=== PATIENT | male | born 1940 | race Caucasian/White ===

== ENCOUNTER 2017-04-07 09:56 | Day surgery (SDC) | payer MEDICARE, OTHER ==
[~2017-04-07 09:56] MED LIST: MEDS
[2017-04-07 11:17] LABS: BASO % 0.2 % (0-2); EOS % 2.4 % (0-7); EOSINOPHIL ABSOLUTE COUNT 0.1 tho/cmm (0.0-0.7); HCT-HEMATOCRIT 34.9 % (36.0-53.5); HGB-HEMOGLOBIN 11.8 gm/dl (13.5-17.0); IMMATURE GRANULOCYTES ABSOLUTE 0.01 tho/cmm (0-0.03); IMMATURE GRANULOCYTES PERCENT 0.2 % (0-0.3); LYMPH % 8.7 % (20-45); LYMPH ABSOLUTE COUNT 0.4 tho/cmm (0.8-4.5); MCH (MEAN CORPUSCULAR HGB) 31.1 pg (28.0-32.0); MCHC MEAN CORPUSCULAR HGB CONC 33.8 % (32.0-36.0); MCV (MEAN CELL VOLUME) 91.8 fl (82.0-96.0); MEAN PLATELET VOLUME 9.3 cmc (9.4-12.4); MONO % 10.9 % (0-12); MONOCYTE ABSOLUTE COUNT 0.5 tho/cmm (0.0-1.2); NEUTROPHIL ABSOLUTE COUNT 3.9 tho/cmm (1.6-8.0); NEUTROPHIL-AUTOMATED 3.9 tho/cmm (1.6-8.0); NEUTROPHILS % 77.6 % (40-80); PLATELET COUNT 124 tho/cmm (150-450); RED CELL DISTRIBUTION WIDTH 13.1 % (12.4-16.4)
[2017-04-07 11:26] LABS: INR 1.1 INR (0.9-1.1); PROTHROMBIN TIME 12.3 SECONDS (9.0-13.6)
[2017-06-12] MEDS ORDERED: LANTUS100 UNITS/ SC ×2 (13:07→13:42)
[2017-06-12] MEDS ORDERED: CENTRUM SILVER1 EAC3 PO (13:07)
[2017-06-12] MEDS ORDERED: KEPPRA500 M3 PO (13:08)
[2017-06-12] MEDS ORDERED: TOPROL XL25 M1 PO (13:08)
[2017-06-12] MEDS ORDERED: DILANTIN100 M1 PO (13:11)
[2017-06-12] MEDS ORDERED: PRAVASTATIN SOD20 M1 PO (13:12)
[2017-06-12] MEDS ORDERED: ZOFRAN8 M1 PO (13:17)
[2017-06-12] MEDS ORDERED: PROAIR HFA8.5 GM INH (13:17)
[2017-06-12] MEDS ORDERED: NORCO 5-325 TA1 EACH PO (13:18)
[2017-06-12] MEDS ORDERED: PROCHLORPERAZIN10 M1 PO (13:18)
[2017-06-12] MEDS ORDERED: LINZESS290 MC1 PO (13:19)
[2017-06-12] MEDS ORDERED: BREO ELLIPTA 21 EACH INH (13:19)
[2017-06-12] MEDS ORDERED: HYDROCHLOROTHIA25 M1 PO (13:19)
[2017-06-12] MEDS ORDERED: AMITIZA24 MC1 PO (13:19)
[2017-06-12] MEDS ORDERED: LOMOTIL 2.5-0.1 EACH PO (13:20)
[2017-06-12] MEDS ORDERED: COZAAR50 M1 PO (13:20)
[2017-06-12] MEDS ORDERED: TRIAMCINOLONE A15 G2 TP (13:20)
[2017-06-12] MEDS ORDERED: OPDIVO100 MG/10 IV (13:21)
[2017-06-12] MEDS ORDERED: INCRUSE ELLI62.5 MCG INH (13:41)
[2017-06-12] MEDS ORDERED: PEPTO-BISM262 MG/11 PO (13:45)
[2017-06-12] MEDS ORDERED: VIBRAMYCIN100 M1 PO (13:46)
[2017-06-12] MEDS ORDERED: NITROGLYCERIN0.4 M2 SL (14:30)
[2017-06-14] MEDS ORDERED: ASPIRIN EC81 MG PO (17:59)
[2017-06-14] MEDS ORDERED: NORCO 5-325 TA1 EACH PO (19:28)
[2017-06-14] MEDS ORDERED: ZOFRAN4 M2 PO (19:28)
== END 2017-04-07 14:00 ==
LOC: SHSB 09:56
PROVIDERS: Radiology Diagnostic Radiology
PROC: 0PB13ZX Excision of 1 to 2 Ribs, Percutaneous Approach, Diagnostic (ICD-10-PCS; principal; 2017-04-07)
DX: C41.3 Malignant neoplasm of ribs, sternum and clavicle (principal); M19.90 Unspecified osteoarthritis, unspecified site; J44.9 Chronic obstructive pulmonary disease, unspecified; E78.5 Hyperlipidemia, unspecified; I10 Essential (primary) hypertension; G40.909 Epilepsy, unspecified, not intractable, without status epilepticus; I25.10 Atherosclerotic heart disease of native coronary artery without angina pectoris; E11.40 Type 2 diabetes mellitus with diabetic neuropathy, unspecified; Z79.4 Long term (current) use of insulin; Z79.82 Long term (current) use of aspirin; Z79.899 Other long term (current) drug therapy; Z88.0 Allergy status to penicillin; Z85.820 Personal history of malignant melanoma of skin; Z85.118 Personal history of other malignant neoplasm of bronchus and lung; Z92.3 Personal history of irradiation; Z92.21 Personal history of antineoplastic chemotherapy; Z87.891 Personal history of nicotine dependence; Z90.89 Acquired absence of other organs; Z96.653 Presence of artificial knee joint, bilateral; Z98.41 Cataract extraction status, right eye; Z95.5 Presence of coronary angioplasty implant and graft; Z98.890 Other specified postprocedural states
CPT/HCPCS: C1830; J2250; J3010; J7030